=== PATIENT | male | born 1955 | race Caucasian/White ===

== ENCOUNTER 2017-11-03 22:25 | Emergency (ER) | payer BC ==
[2015-03-02 13:24] VITALS: BMI 30.4
[~2017-11-03 22:25] MED LIST: ACETAMINOPHEN500 M1 PO; ADVAIR 100/501 DISK INH; AUGMENTIN 875-11 TAB PO; BAYER CHEWABLE81 MG PO; BENICAR5 MG PO; BRILINTA90 MG PO; CATAPRES0.1 MG PO; CEFTIN500 MG PO; CELEBREX200 MG; COMBIVENT INH14.7 GM INH; COREG25 MG PO; DULERA 100 MCG8.8 GM INH; FEXOFENADINE HC60 MG PO; FLUTICASONE PRO16 GM NASAL; HUMALOG 30100 UNITS/ SC; IPRAT-ALBUT 0.5-3 ML INH; LANTUS INSULIN10 ML SC; LANTUS INSULIN10 ML SQ; LASIX20 MG PO; MUCINEX1200 MG/BO PO; PRAVACHOL10 MG PO; PRAVACHOL20 MG PO; ROBITUSSIN AC PO; SINGULAIR10 MG PO; STERAPRED 5MG 125 MG PO; TYLENOL 325 MG325 MG PO; ULORIC40 MG PO; ULTRAM50 MG PO; VITAMIN D PO; VITAMIN D31000 UNIT PO; VITAMIN D50000 UNIT PO; ZYLOPRIM300 MG PO
[2017-11-03 22:57] LABS: BASOPHILS 0.3 % (0-2); EOSINOPHILS 3.3 % (0-7); HEMATOCRIT 38.7 % (42.0-54.0); HEMOGLOBIN 12.8 g/dL (13.5-17.5); IMMATURE GRANULOCYTES 0.2 % (0-5); LYMPHOCYTES 18.6 % (15-50); MCH 30.8 pg (26.0-34.0); MCHC 33.1 g/dL (31.0-37.0); MCV 93.3 fL (80.0-100.0); MEAN PLATELET VOLUME 10.3 fL (7.4-10.4); NEUTROPHILS 65.6 % (40-80); PLATELET COUNT 131 10x3/uL (130-400); RBC 4.15 10x6/uL (4.20-6.10); RDW 14.9 % (11.5-14.5); WBC 6.1 10x3/uL (4.8-10.8)
[2017-11-03 23:10] LABS: APPEARANCE CLEAR (CLEAR); BILIRUBIN NEGATIVE (NEGATIVE); COLOR YELLOW (YELLOW); GLUCOSE NEGATIVE (NEGATIVE); KETONE NEGATIVE (NEGATIVE); NITRITE NEGATIVE (NEGATIVE); PROTEIN NEGATIVE (NEGATIVE); UROBILINOGEN NORMAL (NORMAL)
[2017-11-03 23:14] LABS: ALBUMIN 3.3 g/dL (3.4-5.0); ALKALINE PHOSPHATASE 165 U/L (46-116); ALT (SGPT) 57 U/L (10-68); CALC OSMOLALITY 296 mosm/kg (275-300); CALCIUM 9.1 mg/dL (8.5-10.1); CARBON DIOXIDE 21.3 mmol/L (21.0-32.0); CHLORIDE - SERUM 105 mmol/L (98-107); CREATININE - SERUM 3.6 mg/dL (0.6-1.3); GLUCOSE 111 mg/dL (74-106); POTASSIUM - SERUM 4.8 mmol/L (3.5-5.1); PROTEIN - SERUM 7.2 g/dL (6.4-8.2); SODIUM 138 mmol/L (136-145); UREA NITROGEN 69 mg/dL (7-18); eGFR NON AFRICAN AMERICAN 18 mL/min (90-120)
[2017-11-03 23:35] LABS: CKMB 2.2 U/L (0.0-3.6); CREATINE KINASE 207 UL (21-232); PRO BNP 7604 pg/mL (0-125); TROPONIN-I < 0.017 ng/mL (0.000-0.060)
== END 2017-11-04 03:03 | disposition home or self-care (01) ==
LOC: D.ER 22:25
PROVIDERS: Family Medicine
DX: J45.901 Unspecified asthma with (acute) exacerbation (principal); I50.9 Heart failure, unspecified; E11.9 Type 2 diabetes mellitus without complications; Z79.4 Long term (current) use of insulin

== ENCOUNTER 2020-01-07 08:38 | Outpatient (CLI) | payer BC ==
[~2020-01-07] VITALS: Ht 182.9 cm; Wt 88.0 kg
[2020-01-07 10:29] VITALS: BP 119/58; Ht 182.9 cm; Wt 88.0 kg
== END 2020-01-07 12:39 | disposition home or self-care (01) ==
LOC: D.OPS 08:38
PROVIDERS: ATTEND Family Medicine
DX: D64.9 Anemia, unspecified (principal)